=== PATIENT | female | born 1980 ===

== ENCOUNTER → 2019-03-21 15:26 | Outpatient (CLI) | payer SELFPAY ==
[2019-03-21 15:46] LABS: Cholesterol 191 mg/dL (200); High Density Lipoprotein 55 mg/dL; Triglycerides 123 mg/dL; Very Low Density Lipoprotein 25 mg/dL (5-40)
== END ==
DX: F11.23 Opioid dependence with withdrawal (principal); B18.2 Chronic viral hepatitis C
CPT/HCPCS: 80061